=== PATIENT | male | born 1995 | race African-American/Black ===

== ENCOUNTER 2024-10-26 05:56 | Emergency (ER) | payer MEDICAID ==
[~2024-10-26] VITALS: Ht 177.8 cm; Wt 104.3 kg
[2024-10-26 07:21] LABS: PLATELET COUNT (AUTO) 210 K/uL (150-450); RED BLOOD CELL COUNT(AUTO) 5.01 MIL/uL (4.5-6.0); RED CELL DISTRIBUTION WIDTH 12.3 % (11.5-15.0); WHITE BLOOD COUNT (AUTO) 4.8 K/uL (4.3-11.0)
[2024-10-26 07:28] LABS: CALCIUM, SERUM 8.6 mg/dL (8.5-10.1); CREATININE 1.1 mg/dL (0.6-1.3); SODIUM SERUM 141 mmol/L (136-145); UREA NITROGEN, BLOOD 12 mg/dL (7-18)
[2024-10-26 10:00] VITALS: BP 117/70; O2SAT 98
== END 2024-10-26 10:01 | disposition home or self-care (01) ==
LOC: ER 05:59
DX: R07.9 Chest pain, unspecified (principal); R06.02 Shortness of breath; R51.9 Headache, unspecified; R11.0 Nausea
CPT/HCPCS: 36415; 71045-TC; 80048-TC; 84484-TC; 85025-TC